=== PATIENT | female | born 2000 | race Caucasian/White ===

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

== ENCOUNTER 2021-04-01 01:31 | Emergency (ER) | payer OTHER ==
[~2021-04-01 01:31] MED LIST: FEOSOL325 MG PO; FLINTSTONES GU1 EACH PO; POTASSIUM CHLO20 ME2 PO
[2021-04-01 04:18] LABS: BASOPHIL 0.1 % (0-2); EOSINOPHIL 0.6 % (0-5); HCT 39.5 % (37.0-47.0); HGB 12.6 g/dl (12.5-16.0); LYMPHOCYTE 29.1 % (15-48); MCH 27.7 pg (25.0-31.0); MCHC 31.9 g/dL (32.0-36.0); MCV 86.8 fL (78.0-100.0); MONOCYTE 9.7 % (0-12); NEUTROPHIL 60.1 % (41-80); NRBC 0; PLT 349 K/uL (150-400); RBC 4.55 M/uL (4.20-5.40); RDW 12.7 % (11.5-14.0); WBC 8.2 K/uL (4.0-10.5)
[2021-04-01 04:36] LABS: ALBUMIN 3.7 g/dL (3.4-5.0); BILIRUBIN - TOTAL 0.2 mg/dL (0.2-1.0); BUN/CREAT RATIO (CALC) 17.5 RATIO; CREATININE 0.63 mg/dL (0.51-0.95); GLOBULIN (CALCULATION) 4.2 g/dL; MAGNESIUM 2.1 mg/dL (1.8-2.4); POTASSIUM 3.8 mmol/L (3.5-5.1); TOTAL PROTEIN 7.9 g/dL (6.4-8.2)
[2021-04-01] MEDS ORDERED: MEDROL 4MG DOSEP4 MG PO (05:43)
[2021-04-01] MEDS ORDERED: NAPROXEN500 MG PO (05:43)
== END 2021-04-01 06:19 | disposition home or self-care (01) ==
LOC: FER 01:31
PROVIDERS: Emergency Medicine
DX: U07.1 COVID-19 (principal)
CPT/HCPCS: 36415; 71250; 80053; 83735; 84484; 85025; 85379; 93005; J1885; J2405; U0002